=== PATIENT | male | born 1995 | race Caucasian/White ===

== ENCOUNTER 2019-11-26 18:51 | Emergency (ER) | payer OTHER ==
[~2019-11-26] VITALS: Ht 170.2 cm; Wt 68.0 kg
[~2019-11-26 18:51] MED LIST: IBUPROFEN 600600 M1 PO; KEFLEX500 MG PO
[2019-11-26 19:24] LABS: ABSOLUTE EOSINOPHILS 0.2 thou/uL (0.0-0.7); ABSOLUTE LYMPHOCYTES 2.1 thou/uL (0.8-5.3); ABSOLUTE MONOCYTES 0.8 thou/uL (0.0-1.2); ABSOLUTE NEUTROPHILS 4.5 thou/uL (1.6-8.1); BASOPHILS 0.5 %; HEMATOCRIT 42.3 % (42.0-52.0); HEMOGLOBIN 15.1 gm/dL (14.0-18.0); LYMPHOCYTES 27.5 %; MCH 30.8 pg (26.0-34.0); MCHC 35.8 g/dL (28.0-37.0); MCV 86.2 fL (80.0-100.0); MONOCYTES 10.4 %; MPV 7.4 fl. (7.2-11.1); NUCLEATED RBCS 0 /100WBC; PLATELET COUNT* 353 thou/uL (150-400); POLYS 59.6 %; RBC 4.91 mil/uL (4.50-6.00); RDW-CV 12.5 % (10.5-14.5); WBC 7.6 thou/uL (4.0-11.0)
[2019-11-26 19:33] LABS: CALCIUM 9.2 mg/dL (8.5-10.1); CREATININE 1.1 mg/dL (0.6-1.3); POTASSIUM 3.8 mmol/L (3.5-5.1)
[2019-11-26 19:37] LABS: ALBUMIN 4.6 g/dL (3.4-5.0); TOTAL BILIRUBIN 0.8 mg/dL (<0.1-1.0)
[2019-11-26 20:26] LABS: ESR (SEDRATE) 0 mm/hr (0-15)
[2019-11-26 20:55] VITALS: BP 103/65
--- NOTE | 2019-11-27 13:53 | EKG ---
[place] [address] ELECTROCARDIOGRAM REPORT Name: JOSE PATHAK Room: [facility]#: [id number] Admission: 11/26/19 Attend Phys: Discharge: 11/26/19 Date of : [birth year] Date of Service: 11/26/19 1858 Report #: [id number] THIS REPORT FOR: //name// [facility] ED Test Date: 2019-11-26 Test Time: 18:58:53 Pat Name: JOSE PATHAK Department: Room: Gender: Power Clean[employer] Operator: [facility] : 1995 Requested By: Chyna Lester Order Number: [id number] : Marco George Measurements Intervals [place] Rate: 75 P: 76 DE: 136 QRS: 84 QRSD: 97 T: 43 QT: 358 QTc: 400 Interpretive Statements Sinus rhythm Baseline wander in lead(s) V1,V2 No previous ECG available for comparison Electronically Signed On 11-27-2019 13:53:00 CDT by Marco George [email or web address] <ELECTRONICALLY SIGNED> By: Marco George MD, [facility] 11/27/19 1353 57 57 Marco George MD, FACC /EPI
== END 2019-11-26 20:55 | disposition home or self-care (01) ==
LOC: M.ERS 18:51
PROVIDERS: Emergency Medicine
DX: M94.0 Chondrocostal junction syndrome [Tietze] (principal); Z20.828 Contact with and (suspected) exposure to other viral communicable diseases